=== PATIENT | male | born 1955 | race Caucasian/White ===

== ENCOUNTER 2022-09-05 21:30 | Emergency (ER) | payer MEDICARE ==
[~2022-09-05] VITALS: Ht 172.7 cm; Wt 95.5 kg
[2022-09-05 21:46] LABS: BASOPHILS % (AUTO) 0.5 % (0-1); EOSINOPHILS # (AUTO) 0.2 X10'3 (0-0.9); EOSINOPHILS % (AUTO) 2.6 % (0-6); HEMATOCRIT 41.6 % (42.0-52.0); HEMOGLOBIN 13.7 g/dl (14.0-17.9); LYMPHOCYTES # (AUTO) 0.9 X10'3 (1.1-4.8); LYMPHOCYTES % (AUTO) 14.9 % (21-51); MEAN CORPUSCULAR HEMOGLOBIN 29.3 PG (27.0-31.0); MEAN CORPUSCULAR VOLUME 88.8 FL (78-98); MEAN PLATELET VOLUME 7.5 FL (7.4-10.4); MONOCYTES # (AUTO) 0.9 X10'3 (0-0.9); MONOCYTES % (AUTO) 15.2 % (2-12); NEUTROPHILS % (AUTO) 66.8 % (42-75); PLATELET COUNT 252 X10'3 (140-440); RED BLOOD COUNT 4.68 X10'6 (4.70-6.10); RED CELL DISTRIBUTION WIDTH 15.3 % (11.5-14.5)
[2022-09-05 22:05] LABS: TOTAL CELLS COUNTED 100
[2022-09-05 22:06] LABS: PLATELET ESTIMATE NORMAL
[2022-09-05 22:07] LABS: ALANINE AMINOTRANSFERASE 44 U/L (12-78); ALBUMIN 3.8 G/DL (3.4-5.0); ALBUMIN/GLOBULIN RATIO 1.2 (1.1-1.5); ALKALINE PHOSPHATASE 83 IU/L (46-116); ANION GAP 6 (8-16); ASPARTATE AMINO TRANSFERASE 46 U/L (10-37); BILIRUBIN,TOTAL 0.6 MG/DL (0.1-1.0); BLOOD UREA NITROGEN 8 MG/DL (7-18); BUN/CREATININE RATIO 8.4 (5.4-32.0); CALCIUM 8.6 MG/DL (8.5-10.1); CHLORIDE 96 MMOL/L (99-107); CREATININE 0.95 MG/DL (0.60-1.10); GLUCOSE 99 MG/DL (70-104); POTASSIUM 4.3 MMOL/L (3.5-5.1); SODIUM 131 MMOL/L (135-145); TOTAL CARBON DIOXIDE 29.2 MMOL/L (24-32); eGFR 79 ML/MIN
[2022-09-05 22:13] LABS: MAGNESIUM 1.9 MG/DL (1.5-2.4)
[2022-09-05] MEDS ORDERED: azithromycin 250mg tablet PO ONE (22:55)
[2022-09-05] MEDS ORDERED: guaiFENesin/DM 10ml UD oral syrup PO ONE (22:55)
[2022-09-05] MEDS ORDERED: ibuprofen tablet 400 MG TABLET PO ONE (22:55)
[2022-09-05] MEDS ORDERED: AZIT-31 PO (23:08)
[2022-09-05] MEDS ORDERED: BENZ-38 PO (23:08)
[2022-09-05] MEDS ORDERED: IBUP-860 PO (23:08)
[2022-09-05 23:19] VITALS: BP 142/95
== END 2022-09-05 23:21 | disposition home or self-care (01) ==
LOC: ER 21:30
DX: J18.9 Pneumonia, unspecified organism (principal); R05.1 Acute cough; Z87.81 Personal history of (healed) traumatic fracture; Z79.899 Other long term (current) drug therapy; Z79.1 Long term (current) use of non-steroidal anti-inflammatories (NSAID)
CPT/HCPCS: 36415; 71045; 80053; 83735; 83880; 84484; 85007; 85025; 93005; 99285